=== PATIENT | female | born 1985 | race Caucasian/White ===

== ENCOUNTER 2017-12-10 19:24 | Observation (INO) ==
[2017-12-10] MEDS ORDERED: 0.9 % Sodium Chloride 1,000 ML IVC ONE ×2 (19:25→20:56)
[2017-12-10] MEDS ORDERED: Ondansetron 4 MG/2 ML VIAL IVP ONE (19:25)
--- NOTE | 2017-12-10 19:34 | Emergency Department Note ---
Disposition Clinical Impression: Nephrolithiasis, ROSALIE (acute kidney injury), Hypokalemia, Pyelonephritis Disposition: Admitted As Inpatient Condition: Undetermined Referrals: Willa Weeks CNP [Primary Care Provider] - Forms: ED Satisfaction Letter Time of Disposition: 21:45 Nausea/Vomiting/Diarrhea HPI - General Chief complaint: ED Nausea/Vomiting/Diarrhea Stated complaint: abdominal pain Time Seen by Provider: 12/10/17 19:25 Source: patient, EMS Mode of arrival: EMS Limitations: no limitations Nursing Notes Reviewed: Yes Vital Signs Reviewed: Yes - History of Present Illness HPI Narrative: 32-year-old female with history of kidney stones arrives to the emergency department with complaint of left flank pain and nausea and vomiting. The patient states this started roughly 5 days ago. The patient states this feels identical to previous kidney stones in the past. The patient states the only thing that is different is the fact that she is now having vomiting after she thinks she passed the kidney stone. She denies any pain at this time. She is resting comfortably in the room with the exception of feeling very nauseated and vomiting. The patient went to urgent care earlier today and was noted to have a heart rate in the 120s. The patient was started on IV fluids as well as sent to the emergency department for further evaluation. The patient is resting comfortably in the room at this time denying any request for analgesics but he is requesting antiemetics. Denies any other complaints. She denies any diarrhea, constipation, fevers, chills, chest pain, difficulty breathing. - Related Data Home Medications Medication Instructions Recorded Confirmed Buprenorphine HCl/Naloxone HCl 1.5 each SL DAILY 12/10/17 12/10/17 [Suboxone 8 mg-2 mg Sl Film] Citalopram [CeleXA] 20 mg PO DAILY 12/10/17 12/10/17 Hydrocortisone Acetate [Anucort-HC] 25 mg RC TID 12/10/17 12/10/17 Ibuprofen [Ibu] 800 mg PO TID 12/10/17 12/10/17 Lurasidone HCl [Latuda] 60 mg PO DAILY 12/10/17 12/10/17 Ondansetron HCl [Zofran] 4 mg PO QID 12/10/17 12/10/17 Sennosides [Senna] 8.6 mg PO TID 12/10/17 12/10/17 cloNIDine HCl [Clonidine HCl] 0.2 mg PO DAILY 12/10/17 12/10/17 diazePAM [Valium] 10 mg PO TID 12/10/17 12/10/17 traZODone [TraZODone] 50 mg PO HS 12/10/17 12/10/17 Allergies Allergy/AdvReac Type Severity Reaction Status Date / Time codeine Allergy Hives Verified 12/10/17 21:26 latex Allergy See Verified 12/10/17 21:26 Comments tramadol [From Ultram] Allergy See Verified 12/10/17 21:26 Comments All systems ED: reviewed and negative except as stated. Constitutional: Denies: fever, chills, weakness ENT ED: Denies: congestion Cardiovascular: Denies: chest pain Respiratory: Denies: dyspnea Gastrointestinal: Reports: nausea, vomiting. Denies: abdominal pain, diarrhea, constipation, hematemesis, melena, hematochezia Genitourinary: Reports: hematuria. Denies: urgency, dysuria Musculoskeletal: Denies: back pain Integumentary: Denies: rash Past Medical History - Past Medical History Attestation: Yes The following information was validated with the patient. 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 - Social History Smoking Status: Current every day smoker Smokeless Tobacco Status: No Alcohol use: Reports: none Drug use: Reports: none Physical Exam - General Limitations: no limitations General appearance: alert, in no apparent distress - Head Head exam: atraumatic, normocephalic, normal inspection - Eye Eye exam: Present: normal appearance, PERRL, EOMI - ENT ENT exam: normal exam, normal oropharynx, mucous membranes moist - Neck Neck exam: Present: normal inspection, full ROM, trachea midline - Chest Chest inspection: Present: normal inspection, symmetric chest wall rise - Respiratory Respiratory exam: Present: normal lung sounds bilaterally - Cardiovascular Cardiovascular exam: Present: normal rhythm, tachycardia, normal heart sounds - Abdominal Exam Abdominal exam: Present: soft, Non-Tender. Absent: tenderness, distention, guarding, rebound, rigidity - Extremities Exam Extremities exam: Present: normal inspection, full ROM. Absent: tenderness, pedal edema - Neurological Exam Neurological exam: Present: alert, oriented X3 - Skin Skin exam: Present: warm, dry, intact, normal color Course - Consultations Consultation #1: Spoke with Dr. Schmitz in urology who had no further recommendations other than antibiotic's and IV fluids. Time: 21:44 Vital Signs Temperature 99.9 F H 12/10/17 19:37 Pulse Rate 112 12/10/17 19:37 Respiratory Rate 18 12/10/17 19:37 Blood Pressure 121/89 12/10/17 19:37 O2 Sat by Pulse Oximetry 95 12/10/17 19:37 Temperature 99.9 F H 12/10/17 19:37 Pulse Rate 111 12/10/17 20:25 Respiratory Rate 16 12/10/17 20:25 Blood Pressure 115/100 12/10/17 20:25 O2 Sat by Pulse Oximetry 96 12/10/17 20:25 Oxygen Delivery Oxygen Delivery Room Air Nausea/Vomiting/Diarrhea - MDM Narrative Medical decision making narrative: Patient's workup in the emergency department demonstrates findings of pyelonephritis. There is no retained stone on CAT scan. The patient is a leukocytosis as well as noted to be hypokalemia with an acute kidney injury. The patient was receiving IV fluids upon arrival and another liter fluid was administered here in the ED with her nausea controlled with 8 mg of IV Zofran. The patient was started on IV antibodies, Rocephin. The patient's case was discussed with on-call urology who had no further recommendations other than antibiotics as well as IV fluids. The patient will be admitted to the hospital with a diagnosis of pyelonephritis, hypokalemia and acute kidney injury. Accepted by Dr. Palacios. - Lab Data Lab results reviewed: Yes I reviewed the patient's lab results. Result diagrams: 12/10/17 19:25 12/10/17 19:25 Lab Results 12/10/17 12/10/17 12/10/17 Range/Units 19:25 19:25 19:33 WBC 25.7 H (4.3-11.1) K/mcL RBC 5.63 H (3.82-4.97) M/mcL Hgb 16.9 H (11.5-15.4) g/dL Hct 47.6 H (35.3-44.9) % MCV 84.5 (83.0-100.0) fL MCH 30.0 (28.0-33.3) pg MCHC 35.5 (31.6-35.5) g/dL RDW 13.0 (11.5-14.5) % Plt Count 156 (140-400) K/mcL MPV 10.7 (9.4-12.4) fL Immature Gran % 0.9 (0-4) % Seg Neutrophils % 89.0 % Lymphocytes % 4.9 % Monocytes % 5.0 % Eosinophils % 0.0 % Basophils % 0.2 % Neutrophils # 22.9 H (1.6-8.9) K/mcL Lymphocytes # 1.3 (0.6-4.6) K/mcL Monocytes # 1.3 (0.0-1.3) K/mcL Eosinophils # 0.0 (0.0-0.6) K/mcL Basophils # 0.1 (0.0-0.2) K/mcL Reactive Lymphocytes Present A (Not Present) Platelet Estimate Normal (Normal) Sodium 133 L (136-145) mEq/L Potassium 2.8 L (3.5-5.1) mEq/L Chloride 100 (98-107) mEq/L Carbon Dioxide 20 L (23-29) mEq/L BUN 31 H (6-20) mg/dL Creatinine 1.30 H (0.60-1.20) mg/dL Est GFR ( Amer) 57 L (> 60) Est GFR (Non-Af Amer) 47 L (> 60) BUN/Creatinine Ratio 24 (6-26) Glucose 172 H (70-105) mg/dL Calculated Osmolality 287 (280-300) Calcium 8.9 (8.6-10.3) mg/dL Urine Color Dark Yellow (Yellow) Urine Clarity Turbid A (Clear) Urine pH 5.5 (5.0-8.0) pH Units Ur Specific [place] 1.019 (1.010-1.025) Urine Protein >=300 H (Neg-Trace) mg/dL Urine Glucose (UA) Normal (Normal) mg/dL Urine Ketones Negative (Negative) mg/dL Urine Blood Large H (Negative) Urine Nitrite Negative (Negative) Urine Bilirubin Negative (Negative) Urine Urobilinogen Normal (Normal) mg/dL Ur Leukocyte Esterase Large H (Negative) Urine Microscopic RBC 15-30 H (0-3) per hpf Urine Microscopic WBC TNTC H (0-3) per hpf Ur Squamous Epith Cells Many H (None-Few) per lpf Urine Bacteria Many H (None-Few) per hpf Hyaline Casts None Seen (None-Few) per lpf Ur Culture Indicated? NO. A (NO) - Radiology Data Radiology results reviewed: Yes I reviewed the patient's radiology results. Abdomen/Pelvis CT 12/10/17 20:29 IMPRESSION: 1. Moderate left hydronephrosis with perinephric stranding but no evident ureteral or urinary bladder calculus. Differential diagnosis includes pyelonephritis or recent passage of a calculus. 2. Punctate nonobstructing bilateral nephrolithiasis. 3. Mild diffuse hepatic steatosis. D/ / Ameya Foss / Ameya Foss Interpreting Provider: Ameya Foss - EKG Data EKG attestation: Yes I reviewed and interpreted this EKG. EKG results narrative: Heart rate 117 beats for minute. Sinus tachycardia. No ST elevation or ST depression noted. No acute changes with the exception of sinus tachycardia.
[2017-12-10 19:38] LABS: Bilirubin,Urine Negative (Negative); Blood,Urine Large (Negative); Clarity,Urine Turbid (Clear); Color,Urine Dark Yellow (Yellow); Glucose,Urine (UA) Normal (Normal); Ketones,Urine Negative (Negative); Leukocyte Esterase,Urine Large (Negative); Nitrite,Urine Negative (Negative); PH,Urine 5.5 pH Units (5.0-8.0); Protein,Urine >=300 mg/dL (Neg-Trace); Specific Gravity,Urine 1.019 (1.010-1.025); Urobilinogen,Urine Normal (Normal)
[2017-12-10 19:39] LABS: Bacteria,Urine Many per hpf (None-Few); Hyaline Casts,Urine None Seen per lpf (None-Few); RBC,Urine 15-30 per hpf (0-3); Squamous Epithelial Cell,Urine Many per lpf (None-Few); WBC,Urine TNTC per hpf (0-3)
--- NOTE | 2017-12-10 19:58 | Emergency Department Note ---
Disposition Clinical Impression: Nephrolithiasis Disposition: Still a Patient Forms: ED Satisfaction Letter General Adult HPI - General Chief complaint: ED Nausea/Vomiting/Diarrhea Stated complaint: abdominal pain Time Seen by Provider: 12/10/17 19:25 Source: patient, EMS Mode of arrival: EMS Limitations: no limitations - History of Present Illness Pain Scale: 4 - Related Data Home Medications Medication Instructions Recorded Confirmed Cetirizine HCl [Zyrtec] 10 mg PO QAM 05/23/15 01/08/16 Diazepam [Valium] 10 mg PO TID 05/23/15 01/08/16 Hydrochlorothiazide 25 mg PO DAILY 05/23/15 01/08/16 Lamotrigine [Lamictal] 300 mg PO BID 05/23/15 01/08/16 Lisinopril [Zestril] 40 mg PO DAILY 05/23/15 01/08/16 Rivaroxaban [Xarelto] 20 mg PO QAM 05/23/15 01/08/16 traZODone [TraZODone] 300 mg PO HS 05/23/15 01/08/16 Previous Rx's Medication Instructions Recorded Meclizine [Antivert] 25 mg PO ONCE PRN #20 tablet 05/23/15 Allergies Allergy/AdvReac Type Severity Reaction Status Date / Time codeine Allergy Hives Verified 01/08/16 21:21 latex Allergy See Verified 01/08/16 21:21 Comments tramadol [From Ultram] Allergy See Verified 01/08/16 21:21 Comments Constitutional: Denies: fever, chills, weakness ENT ED: Denies: congestion Cardiovascular: Denies: chest pain Respiratory: Denies: dyspnea Gastrointestinal: Reports: nausea, vomiting. Denies: abdominal pain, diarrhea, constipation, hematemesis, melena, hematochezia Genitourinary: Reports: hematuria. 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 I agree with the documented findings, disposition and treatment plan as described except to the extent set forth below. Patient seen with emergency medicine resident Dr. Amado Torres, Please see a copy of his note for details of the H&P, ED evaluation, management and disposition. I have independently evaluated the patient and confirmed appropriate portions of the history and physical exam. Briefly: 32-year-old female by EMS for nausea and vomiting history kidney stone presents with flank pain. Was seen in urgent care earlier her pulses in the 120s there were concerned and sent her in for further evaluation. Patient denies fevers chills shortness breath or chest pain. Abdomen is surgically benign she is tachycardic and appears dehydrated. Patient will be getting IV normal saline bolus screening labs and imaging. We offered the patient IV analgesics she declined at this time. Disposition pending Time: 19:56 Vital Signs Temperature 99.9 F H 12/10/17 19:37 Pulse Rate 112 12/10/17 19:37 Respiratory Rate 18 12/10/17 19:37 Blood Pressure 121/89 12/10/17 19:37 O2 Sat by Pulse Oximetry 95 12/10/17 19:37 Temperature 99.9 F H 12/10/17 19:37 Pulse Rate 112 12/10/17 19:37 Respiratory Rate 18 12/10/17 19:37 Blood Pressure 121/89 12/10/17 19:37 O2 Sat by Pulse Oximetry 95 12/10/17 19:37 Oxygen Delivery Oxygen Delivery Room Air
[2017-12-10 20:09] LABS: Basophils # 0.1 K/mcL (0.0-0.2); Basophils % 0.2 %; Hematocrit 47.6 % (35.3-44.9); Hemoglobin 16.9 g/dL (11.5-15.4); Immature Granulocytes % 0.9 % (0-4); Lymphocytes # 1.3 K/mcL (0.6-4.6); Lymphocytes % 4.9 %; Mean Corpuscular HGB Conc 35.5 g/dL (31.6-35.5); Mean Corpuscular Volume 84.5 fL (83.0-100.0); Mean Platelet Volume 10.7 fL (9.4-12.4); Monocytes # 1.3 K/mcL (0.0-1.3); Neutrophils # 22.9 K/mcL (1.6-8.9); Platelet Count 156 K/mcL (140-400); Red Blood Count 5.63 M/mcL (3.82-4.97)
[2017-12-10 20:27] LABS: Calcium 8.9 mg/dL (8.6-10.3); Potassium 2.8 mEq/L (3.5-5.1)
[2017-12-10] MEDS ORDERED: cefTRIAXone 1,000 MG in Water for inj. (sterile) 20 ML 10 ML IVP ONE (20:30)
[2017-12-10 20:44] LABS: Platelet Estimate Normal (Normal); Reactive Lymphocytes Present (Not Present)
--- NOTE | 2017-12-10 23:01 | Internal Med History&Physical ---
Date of Encounter: 12/11/17 Time of Encounter: 10:01 Internal Medicine - H&P: HPI History of present illness: Ms. Martinez is a 32 year old female with history of kidney stones arrives to the emergency department with complaint of left flank pain and nausea and vomiting. The patient went to urgent care earlier today and was noted to have a heart rate in the 120s. The patient was started on IV fluids as well as sent to the emergency department for further evaluation. CAT scan of the abdomen and pelvis revealed Moderate left hydronephrosis with perinephric stranding but no evident ureteral or urinary bladder calculus, Punctate nonobstructing bilateral nephrolithiasis., Mild diffuse hepatic steatosis. Past Med Surg Social Fam HX - Past Medical History Medical history: asthma, hypertension, migraine, seizures, other Additional medical history: factor 5. Psychiatric history: anxiety, bipolar, depression - Past Surgical History Surgical History: hip replacement Additional surgical history: right knee tumor removed. right hip sx x 2. bladder mesh implant. kidney stones x 2. left oopherectomy. vaginal septum sx. D&C - Social History Smoking Status: Current every day smoker Smokeless Tobacco Status: No Alcohol use: none Drug use: none Internal Medicine - H&P: Meds Buprenorphine HCl/Naloxone HCl [Suboxone 8 mg-2 mg Sl Film] 1.5 each SL DAILY [History] Citalopram [CeleXA] 20 mg PO DAILY 12/10/17 [History] Hydrocortisone Acetate [Anucort-HC] 25 mg RC TID 12/10/17 [History] Ibuprofen [Ibu] 800 mg PO TID 12/10/17 [History] Lurasidone HCl [Latuda] 60 mg PO DAILY 12/10/17 [History] Ondansetron HCl [Zofran] 4 mg PO QID 12/10/17 [History] Sennosides [Senna] 8.6 mg PO TID 12/10/17 [History] cloNIDine HCl [Clonidine HCl] 0.2 mg PO DAILY 12/10/17 [History] diazePAM [Valium] 10 mg PO TID 12/10/17 [History] traZODone [TraZODone] 50 mg PO HS 12/10/17 [History] 3 Allergy/AdvReac Type Severity Reaction Status Date / Time codeine Allergy Hives Verified 12/10/17 21:26 latex Allergy See Verified 12/10/17 21:26 Comments tramadol [From Ultram] Allergy See Verified 12/10/17 21:26 Comments All Systems PM: A 10-system review of systems was performed and is negative for pertinent findings except as documented above in the HPI. - Constitutional Constitutional: no chills, no fever(s), no night sweats - Cardiovascular Cardiovascular ROS IM: no chest pain, no diaphoresis, no dyspnea, no lightheadedness, no palpitations, no syncope - Respiratory Respiratory: no cough, no dyspnea, no wheezing, no excessive phlegm production - Gastrointestinal Gastrointestinal: nausea, vomiting, no abdominal pain, no diarrhea, no hematemesis, no hematochezia, no melena - Genitourinary Genitourinary: flank pain, no change in urinary stream, no dysuria, no hematuria - Neurological Neurological ROS: no confusion, no convulsions, no focal weakness, no numbness, no tingling, no tremor(s) - Constitutional Vitals: Temp Pulse Resp BP Pulse Ox 99.9 F H 114 14 148/84 98 12/10/17 22:48 12/10/17 22:48 12/10/17 22:48 12/10/17 22:48 12/10/17 22:48 General appearance: Present: A&O X 3 - Head Head exam: Present: atraumatic, normocephalic - Neck Neck exam general surgery: Present: supple, trachea midline. Absent: lymphadenopathy - Respiratory Respiratory exam: Present: CTAB. Absent: accessory muscle use, rales, rhonchi, wheezes - Cardiovascular Cardiovascular exam: Present: RRR, +S1, +S2. Absent: diastolic murmur, gallop, rubs, systolic murmur - GI/Abdominal GI/Abdominal exam: Present: normal bowel sounds, soft, no peritoneal signs. Absent: distended, tenderness - Extremities Exam Extremities exam: Present: warm, radial pulses palpable and symmetrical. Absent : calf tenderness, cyanotic, pedal edema - Neurological Exam Neurological exam: Present: CN II-XII intact, oriented X3, no focal deficits. Absent: pronater drift, facial droop, speech deficit Internal Med - H&P Results - Labs CBC & Chem 7: 12/10/17 19:25 12/10/17 19:25 - Assessment and plan (1) Pyelonephritis Current Visit: Yes Status: Acute Assessment and plan: CAT scan of the abdomen and pelvis revealed Moderate left hydronephrosis with perinephric stranding but no evident ureteral or urinary bladder calculus, Punctate nonobstructing bilateral nephrolithiasis., Mild diffuse hepatic steatosis, start the patient on empiric antibiotics, start IV hydration with isotonic fluid, start antiemetic for nausea and vomiting. Urology was consulted for further evaluation and management , (2) Hypokalemia Current Visit: Yes Status: Acute Assessment and plan: Most likely secondary to vomiting we will replace and continue to monitor potassium level (3) ROSALIE (acute kidney injury) Current Visit: Yes Status: Acute Assessment and plan: Most likely secondary to prerenal etiology due to volume depletion in the setting of persistent nausea and vomiting, we will start patient on IV hydration with isotonic fluid and continue to monitor renal function, strict I&O 's, renal dosing of medication per currently GFR (4) Nephrolithiasis Current Visit: Yes Status: Acute Assessment and plan: CAT scan of the abdomen and pelvis revealed Moderate left hydronephrosis with perinephric stranding but no evident ureteral or urinary bladder calculus, Punctate nonobstructing bilateral nephrolithiasis., Neurology was consulted (5) DVT prophylaxis Current Visit: Yes Status: Acute - Time Spent With Patient Total time spent is greater than 50% in coordination of care (as documented) at patient's floor/unit and/or counseling patient:
[2017-12-11] MEDS ORDERED: Acetaminophen 325 MG TABLET PO PRN (02:03)
[2017-12-11] MEDS ORDERED: Naloxone 0.4 MG/ML INJ IVP PRN (02:03)
[2017-12-11] MEDS ORDERED: *HR* HYDROcodone/Acet 5/325 mg TABLET PO PRN (02:03)
[2017-12-11] MEDS ORDERED: *HR* Dextrose 50 % in Water (Syg) 50 ML SYRINGE IVP PRN (02:06)
[2017-12-11] MEDS ORDERED: Dextrose Gel 15 GM/37.5 ML TUBE PO PRN ×2 (02:06)
[2017-12-11] MEDS ORDERED: D5% in Water 1,000 ML IVC PRN (02:06)
[2017-12-11] MEDS: 0.9 % Sodium Chloride 1,000 ML IVC SCH ×2 (03:03→11:55)
[2017-12-11 06:20] LABS: Basophils % 0.2 %; Hematocrit 39.4 % (35.3-44.9); Immature Granulocytes % 1.2 % (0-4); Lymphocytes # 1.5 K/mcL (0.6-4.6); Lymphocytes % 7.7 %; Mean Corpuscular Hemoglobin 29.2 pg (28.0-33.3); Mean Corpuscular Volume 83.5 fL (83.0-100.0); Mean Platelet Volume 11.2 fL (9.4-12.4); Monocytes # 1.4 K/mcL (0.0-1.3); Monocytes % 7.2 %; Neutrophils # 15.9 K/mcL (1.6-8.9); Platelet Count 146 K/mcL (140-400); Red Blood Count 4.72 M/mcL (3.82-4.97); Red Cell Distribution Width 13.3 % (11.5-14.5); Segmented Neutrophils % 83.7 %
[2017-12-11 06:23] LABS: Hemoglobin 13.8 g/dL (11.5-15.4)
[2017-12-11 06:35] LABS: Alanine Aminotransferase 12 Units/L (7-52); Albumin 3.1 g/dL (3.5-5.7); Albumin/Globulin Ratio 1.1 (1.1-2.2); Alkaline Phosphatase 46 Units/L (34-104); Aspartate Amino Transferase 16 Units/L (13-39); BUN/Creatinine Ratio 22 (6-26); Bilirubin,Total 1.3 mg/dL (0.3-1.0); Blood Urea Nitrogen 24 mg/dL (6-20); Calcium 7.7 mg/dL (8.6-10.3); Carbon Dioxide 21 mEq/L (23-29); Chloride 107 mEq/L (98-107); Chol/HDL Ratio 6.5 (0-4.9); Cholesterol 84 mg/dL (< 200); Globulin 2.8 g/dL (2.4-3.5); Glucose 137 mg/dL (70-105); HDL Cholesterol 13 mg/dL (40-59); LDL Cholesterol,Calculated 38 mg/dL (0-99); Magnesium 1.2 mg/dL (1.6-2.6); Osmolality,Calculated 288 (280-300); Phosphorous 1.8 mg/dL (2.7-4.5); Potassium 2.9 mEq/L (3.5-5.1); Sodium 136 mEq/L (136-145); Total Protein 5.9 g/dL (6.4-8.9); Triglycerides 167 mg/dL (< 150); eGFR For African Americans > 60 (> 60); eGFR For Non-African Americans 57 (> 60)
[2017-12-11 06:37] LABS: INR 1.6; Prothrombin Time 17.8 Seconds (9.4-12.1)
[2017-12-11 06:40] LABS: Activated Partial Thrombo Time 32.9 Seconds (26.0-36.0)
[2017-12-11] MEDS ORDERED: Insulin LISPRO 300 UNITS/3 ML VIAL SQ SCH ×2 (07:30→21:00)
[2017-12-11] MEDS ORDERED: Potassium Chloride Elixir 20 MEQ/15 ML UDC PO ONE (08:04)
[2017-12-11] MEDS ORDERED: Potassium Phosphate 44 MEQ in 0.9 % Sodium Chloride 250 ML IVPB ONE (08:04)
[2017-12-11] MEDS: Ondansetron ODT 4 MG TAB.RAPDIS PO SCH ×2 (08:24→11:57)
[2017-12-11] MEDS ORDERED: cefTRIAXone 1,000 MG in Water for inj. (sterile) 20 ML 10 ML IVP SCH (09:00)
[2017-12-11] MEDS ORDERED: Hydrocortisone Acetate 25 MG RECTAL SUPPOSITORY RC SCH (09:00)
[2017-12-11] MEDS ORDERED: Lurasidone 20 MG TABLET PO SCH (09:00)
[2017-12-11] MEDS ORDERED: cloNIDine HCl 0.1 MG TABLET PO SCH (09:00)
[2017-12-11] MEDS ORDERED: diazePAM 10 MG TABLET PO SCH (09:00)
[2017-12-11] MEDS ORDERED: Sennosides 8.6 MG TABLET PO SCH (09:00)
--- NOTE | 2017-12-11 11:29 | Urology - Consult Note ---
Date of Encounter: 12/11/17 Time of Encounter: 11:27 - Assessment and Plan (1) Hydronephrosis Current Visit: Yes Status: Acute Assessment and plan: No obvious obstructing ureteral stone was seen. Likely secondary to inflammatory changes from pyelonephritis. We will continue to observe. No urgent need for ureteral stenting at this time Qualifiers: Hydronephrosis type: other Qualified Code(s): N13.39 - Other hydronephrosis (2) ROSALIE (acute kidney injury) Current Visit: Yes Status: Acute Assessment and plan: Serum creatinine improving overnight with IV fluids. Most likely secondary to dehydration. (3) Nephrolithiasis Current Visit: Yes Status: Acute Assessment and plan: Very tiny left nonobstructing stone not causing significant issues at this time. (4) Pyelonephritis Current Visit: Yes Status: Acute Assessment and plan: Continue with broad-spectrum antibiotics at this time. We will continue to observe along closely with primary team. Awaiting urine culture Urology CN:MICHAEL Consult date: 12/11/17 Reason for consult Urology: Hydronephrosis Requesting physician: Candice Ashley History of present illness: April is a 32 -year-old female with a history of recent admission to the hospital secondary to left-sided hydronephrosis and pyelonephritis. Patient states that over the past few days she has had off-and-on left-sided flank pain as well as some nausea and vomiting. Positive fevers at home. Patient came to the emergency department last night where she was found to have moderate left sided hydronephrosis as well as inflammatory stranding around her left kidney with a fever and leukocytosis. This was consistent with pyelonephritis. Patient did not have any obvious obstructing stone even though she has a very small left renal stone. Past Med Surg Social Fam HX - Past Medical History Medical history: asthma, hypertension, migraine, seizures, other Additional medical history: factor 5. Psychiatric history: anxiety, bipolar, depression - Past Surgical History Surgical History: hip replacement Additional surgical history: right knee tumor removed. right hip sx x 2. bladder mesh implant. kidney stones x 2. left oopherectomy. vaginal septum sx. D&C - Social History Smoking Status: Current every day smoker Packs per day: 1/2 Smokeless Tobacco Status: No Alcohol use: none Drug use: none - Additional Family History Additional family history: Father: 36 yrs, Natural casuses, diagnosed with No History. Mother: 47 yrs, depression, heart condition, hypertension, diagnosed with Hypertension, Mental Illness. 3 brother(s) , 1 sister(s) . 1 son(s) . Denies family hx of colon cancer or polyps. Uncle prone to kidney stones. Medications and Allergies Buprenorphine HCl/Naloxone HCl [Suboxone 8 mg-2 mg Sl Film] 1.5 each SL DAILY [History] Citalopram [CeleXA] 20 mg PO DAILY 12/10/17 [History] Hydrocortisone Acetate [Anucort-HC] 25 mg RC TID 12/10/17 [History] Ibuprofen [Ibu] 800 mg PO TID 12/10/17 [History] Lurasidone HCl [Latuda] 60 mg PO DAILY 12/10/17 [History] Ondansetron HCl [Zofran] 4 mg PO QID 12/10/17 [History] Sennosides [Senna] 8.6 mg PO TID 12/10/17 [History] cloNIDine HCl [Clonidine HCl] 0.2 mg PO DAILY 12/10/17 [History] diazePAM [Valium] 10 mg PO TID 12/10/17 [History] traZODone [TraZODone] 50 mg PO HS 12/10/17 [History] 3 Allergy/AdvReac Type Severity Reaction Status Date / Time codeine Allergy Hives Verified 12/10/17 21:26 latex Allergy See Verified 12/10/17 21:26 Comments tramadol [From Ultram] Allergy See Verified 12/10/17 21:26 Comments Review of Systems - Constitutional chills, fever(s) - EENT Nose, mouth and throat: no dizziness, no sore throat - Cardiovascular no chest pain, no dyspnea - Respiratory no cough, no dyspnea - Gastrointestinal nausea, vomiting, no abdominal pain - Genitourinary Genitourinary: dysuria, flank pain - Musculoskeletal back pain, no muscle weakness - Integumentary no erythema, no lesions, no swelling - Neurological no confusion, no sensory deficit, no weakness - Psychiatric no anxiety, no confusion - Hematologic/Lymphatic no easy bleeding, no lymphadenopathy - Allergic/Immunologic no throat swelling, no wheezing Exam Initial Vital Signs Temp Pulse Resp BP Pulse Ox 99.9 F H 112 18 121/89 95 12/10/17 19:37 12/10/17 19:37 12/10/17 19:37 12/10/17 19:37 12/10/17 19:37 General/Neuological: alert and oriented x 3 Eyes: normal pupils, non-icteric Neck: no lymphadenopathy noted, supple to touch Cardiovascular: RRR, no murmurs Respiratory: normal respiratory effort, clear bilaterally ABD: soft, nontender, no masses palpated, good bowel sounds Back: no pain on percussion bilaterally Skin: no rashes noted Musculoskeletal: normal gait, FROMx4 Urology Results - Labs 12/11/17 05:37 12/11/17 05:37 Abnormal lab results WBC 19.0 K/mcL (4.3-11.1) H 12/11/17 05:37 Neutrophils # 15.9 K/mcL (1.6-8.9) H 12/11/17 05:37 Monocytes # 1.4 K/mcL (0.0-1.3) H 12/11/17 05:37 Reactive Lymphocytes Present (Not Present) A 12/10/17 19:25 PT 17.8 Seconds (9.4-12.1) H 12/11/17 05:37 Potassium 2.9 mEq/L (3.5-5.1) L 12/11/17 05:37 Carbon Dioxide 21 mEq/L (23-29) L 12/11/17 05:37 BUN 24 mg/dL (6-20) H 12/11/17 05:37 Est GFR (Non-Af Amer) 57 (> 60) L 12/11/17 05:37 Glucose 137 mg/dL (70-105) H 12/11/17 05:37 POC Glucose 130 mg/dL (70-99) H 12/11/17 07:01 Calcium 7.7 mg/dL (8.6-10.3) L 12/11/17 05:37 Phosphorus 1.8 mg/dL (2.7-4.5) L 12/11/17 05:37 Magnesium 1.2 mg/dL (1.6-2.6) L 12/11/17 05:37 Total Bilirubin 1.3 mg/dL (0.3-1.0) H 12/11/17 05:37 Serum Total Protein 5.9 g/dL (6.4-8.9) L 12/11/17 05:37 Albumin 3.1 g/dL (3.5-5.7) L 12/11/17 05:37 Triglycerides 167 mg/dL (< 150) H 12/11/17 05:37 VLDL Cholesterol, Calc 33 mg/dL (< 31) H 12/11/17 05:37 HDL Cholesterol 13 mg/dL (40-59) L 12/11/17 05:37 Cholesterol/HDL Ratio 6.5 (0-4.9) H 12/11/17 05:37 Urine Clarity Turbid (Clear) A 12/10/17 19:33 Urine Protein >=300 mg/dL (Neg-Trace) H 12/10/17 19:33 Urine Blood Large (Negative) H 12/10/17 19:33 Ur Leukocyte Esterase Large (Negative) H 12/10/17 19:33 Urine Microscopic RBC 15-30 per hpf (0-3) H 12/10/17 19:33 Urine Microscopic WBC TNTC per hpf (0-3) H 12/10/17 19:33 Ur Squamous Epith Cells Many per lpf (None-Few) H 12/10/17 19:33 Urine Bacteria Many per hpf (None-Few) H 12/10/17 19:33 Ur Culture Indicated? NO. (NO) A 12/10/17 19:33 Diabetes panel 12/11/17 Range/Units 05:37 Sodium 136 (136-145) mEq/L Potassium 2.9 L (3.5-5.1) mEq/L Chloride 107 (98-107) mEq/L Carbon Dioxide 21 L (23-29) mEq/L BUN 24 H (6-20) mg/dL Creatinine 1.10 (0.60-1.20) mg/dL Glucose 137 H (70-105) mg/dL Calcium 7.7 L (8.6-10.3) mg/dL AST 16 (13-39) Units/L ALT 12 (7-52) Units/L Alkaline Phosphatase 46 (34-104) Units/L Albumin 3.1 L (3.5-5.7) g/dL Triglycerides 167 H (< 150) mg/dL HDL Cholesterol 13 L (40-59) mg/dL Calcium panel 12/11/17 Range/Units 05:37 Calcium 7.7 L (8.6-10.3) mg/dL Phosphorus 1.8 L (2.7-4.5) mg/dL Albumin 3.1 L (3.5-5.7) g/dL Pituitary panel 12/11/17 Range/Units 05:37 Sodium 136 (136-145) mEq/L Potassium 2.9 L (3.5-5.1) mEq/L Chloride 107 (98-107) mEq/L Carbon Dioxide 21 L (23-29) mEq/L BUN 24 H (6-20) mg/dL Creatinine 1.10 (0.60-1.20) mg/dL Glucose 137 H (70-105) mg/dL Calcium 7.7 L (8.6-10.3) mg/dL Adrenal panel 12/11/17 Range/Units 05:37 Sodium 136 (136-145) mEq/L Potassium 2.9 L (3.5-5.1) mEq/L Chloride 107 (98-107) mEq/L Carbon Dioxide 21 L (23-29) mEq/L BUN 24 H (6-20) mg/dL Creatinine 1.10 (0.60-1.20) mg/dL Glucose 137 H (70-105) mg/dL Calcium 7.7 L (8.6-10.3) mg/dL Total Bilirubin 1.3 H (0.3-1.0) mg/dL AST 16 (13-39) Units/L ALT 12 (7-52) Units/L Alkaline Phosphatase 46 (34-104) Units/L Albumin 3.1 L (3.5-5.7) g/dL All other labs normal. - Imaging CT scan - abdomen: image reviewed CT scan - pelvis: image reviewed Consult Discharge Plan - Plan Referrals: Willa Weeks, MIRANDA [Primary Care Provider] -
[2017-12-11 15:30] VITALS: BP 137/68
--- NOTE | 2017-12-11 16:28 | Internal Med Progress Note ---
Date of Encounter: 12/11/17 Time of Encounter: 12:00 - Assessment and plan (1) Pyelonephritis Current Visit: Yes Status: Acute Assessment and plan: CT abdomen/pelvis shows left pyelonephritis. IV hydration. Continue IV Rocephin. No blood cultures available. Follow-up urine culture. Improving vital signs and leukocytosis. (2) Sepsis Current Visit: Yes Status: Acute Assessment and plan: Patient presented with leukocytosis, fever and tachycardia due to UTI/ pyelonephritis. Continue IV antibiotics and follow up cultures. Qualifiers: Sepsis type: sepsis due to unspecified organism Qualified Code(s): A41.9 - Sepsis, unspecified organism (3) Nephrolithiasis Current Visit: Yes Status: Acute Assessment and plan: CT abdomen/pelvis shows moderate left hydronephrosis with perinephric stranding , punctate nonobstructing bilateral renal stones. Urology consult appreciated, no acute intervention for now as renal function noted to be improving, no obstructing stones. (4) ROSALIE (acute kidney injury) Current Visit: Yes Status: Acute Assessment and plan: Secondary to UTI and renal stones. Serum creatinine improving, 1.1 today. Continue IV hydration and monitor urine output. (5) Hypokalemia Current Visit: Yes Status: Acute Assessment and plan: Improving. Supplement with oral potassium chloride. (6) DVT prophylaxis Current Visit: Yes Status: Acute (7) Bipolar disorder Current Visit: Yes Status: Chronic Assessment and plan: Resume home medications. Qualifiers: Active/Remission status: remission status unspecified Qualified Code(s): F31.9 - Bipolar disorder, unspecified (8) Opiate dependence Current Visit: Yes Status: Chronic Assessment and plan: Noted to be on Suboxone treatment at home, patient's to bring in home medications. Qualifiers: Substance use status: in remission Qualified Code(s): F11.21 - Opioid dependence, in remission (9) Hypomagnesemia Current Visit: Yes Status: Acute Assessment and plan: Likely related to GI losses. Supplement with IV magnesium sulfate and oral Neutra-Phos. (10) Hypophosphatemia Current Visit: Yes Status: Acute Assessment and plan: Supplement with IV potassium phosphate and oral Neutra-Phos. - Time Spent With Patient Total time spent is greater than 50% in coordination of care (as documented) at patient's floor/unit and/or counseling patient: - Subjective Interval history: Feels better; improved nausea and vomiting; has mild left flank pain, not requiring IV pain meds; no fever/chills, diarrhea, chest pain, dyspnea; - Constitutional Vitals: Temp Pulse Resp BP Pulse Ox 97.9 F 92 16 137/68 94 12/11/17 15:29 12/11/17 15:29 12/11/17 15:29 12/11/17 15:29 12/11/17 15:29 General appearance: Present: A&O X 3, answers questions appropriately - Respiratory Respiratory exam: Present: CTAB. Absent: accessory muscle use, rales, rhonchi, wheezes - Cardiovascular Cardiovascular exam: Present: RRR, +S1, +S2. Absent: diastolic murmur, gallop, rubs, systolic murmur - GI/Abdominal GI/Abdominal exam: Present: normal bowel sounds, soft, no peritoneal signs. Absent: distended, tenderness - Extremities Exam Extremities exam: Present: full ROM, warm, radial pulses palpable and symmetrical. Absent: calf tenderness, cyanotic, pedal edema - Back Exam Back exam: Present: CVA tenderness (L) - Neurological Exam Neurological exam: Present: CN II-XII intact, oriented X3, no focal deficits. Absent: pronater drift, facial droop, speech deficit Internal Medicine: Result - Labs CBC & Chem 7: 12/11/17 05:37 12/11/17 05:37 Labs: Short CBC 12/11/17 Range/Units 05:37 WBC 19.0 H (4.3-11.1) K/mcL Hgb 13.8 D (11.5-15.4) g/dL Hct 39.4 (35.3-44.9) % Plt Count 146 (140-400) K/mcL Neutrophils # 15.9 H (1.6-8.9) K/mcL BMP 12/11/17 05:37 Sodium 136 Potassium 2.9 L Chloride 107 Carbon Dioxide 21 L BUN 24 H Creatinine 1.10 Glucose 137 H Calcium 7.7 L Liver Function 12/11/17 Range/Units 05:37 Total Bilirubin 1.3 H (0.3-1.0) mg/dL AST 16 (13-39) Units/L ALT 12 (7-52) Units/L Alkaline Phosphatase 46 (34-104) Units/L Albumin 3.1 L (3.5-5.7) g/dL - ABG Interpretation ABG results: PT/INR, D-dimer PT 17.8 Seconds (9.4-12.1) H 12/11/17 05:37 Consult Discharge Plan - Plan Referrals: Willa Weeks, MIRANDA [Primary Care Provider] -
[2017-12-11] MEDS ORDERED: traZODone 50 MG TABLET PO SCH (21:00)
--- NOTE | 2017-12-12 11:16 | Electrocardiograph Report ---
[address] [address] Test Date: 2017-12-10 Pat Name: April Martinez Department: 104 Room: 3A56 Gender: F Spiritual Minister: NELLIE : 1985 Requested By: Christina Wagner Order Number: [id number] Reading MD: Ariel Dye Measurements Intervals Zahl Rate: 117 P: 17 OR: 118 QRS: 59 QRSD: 87 T: 19 QT: 328 QTc: 397 Interpretive Statements SINUS TACHYCARDIA POSSIBLE LEFT ATRIAL ENLARGEMENT ABNORMAL RHYTHM ECG Electronically Signed On 12-12-2017 11:14:20 EDT by Ariel Dye
--- NOTE | 2017-12-12 16:53 | Discharge Summary ---
Orders not resulted at time of discharge: Pending orders 12/11/17 08:03 Culture,Urine [RM] Stat Date of Encounter: 12/11/17 Time of Encounter: 18:30 - Discharge Diagnosis (1) Pyelonephritis Priority: Primary Status: Acute (2) Sepsis Priority: Primary Status: Acute Qualifiers: Sepsis type: sepsis due to unspecified organism Qualified Code(s): A41.9 - Sepsis, unspecified organism (3) Nephrolithiasis Priority: Primary Status: Chronic (4) ROSALIE (acute kidney injury) Priority: Primary Status: Acute (5) Hypokalemia Priority: Primary Status: Acute (6) Bipolar disorder Priority: Secondary Status: Chronic Qualifiers: Active/Remission status: remission status unspecified Qualified Code(s): F31.9 - Bipolar disorder, unspecified (7) Opiate dependence Priority: Secondary Status: Chronic Qualifiers: Substance use status: in remission Qualified Code(s): F11.21 - Opioid dependence, in remission (8) Hypomagnesemia Priority: Secondary Status: Acute (9) Hypophosphatemia Priority: Secondary Status: Acute Hospital course: Ms. Martinez is a 32 year old female who was admitted with sepsis secondary to UTI/left-sided pyelonephritis. She was started on IV hydration and empiric IV antibiotics, blood and urine cultures are pending. She is also noted to have multiple electrolyte abnormalities like low potassium, magnesium and phosphorus, which had been supplemented. Patient has been explained all this and the need to stay in the hospital for continued IV hydration and IV antibiotics and urine culture results. She understands that she is at risk for worsening sepsis and shock and other complications including , if she leaves AGAINST MEDICAL ADVICE. She was noted to be alert and oriented, decided to sign out AGAINST MEDICAL ADVICE. Discharge discussed with: patient, nurse - Time Spent with Patient Total time spent providing and/or coordinating discharge services: Less than 30 minutes (20 min) - Discharge Medications Home Medications: Buprenorphine HCl/Naloxone HCl [Suboxone 8 mg-2 mg Sl Film] 1.5 each SL DAILY [History] Citalopram [CeleXA] 20 mg PO DAILY 12/10/17 [History] Hydrocortisone Acetate [Anucort-HC] 25 mg RC TID 12/10/17 [History] Ibuprofen [Ibu] 800 mg PO TID 12/10/17 [History] Lurasidone HCl [Latuda] 60 mg PO DAILY 12/10/17 [History] Ondansetron HCl [Zofran] 4 mg PO QID 12/10/17 [History] Sennosides [Senna] 8.6 mg PO TID 12/10/17 [History] cloNIDine HCl [Clonidine HCl] 0.2 mg PO DAILY 12/10/17 [History] diazePAM [Valium] 10 mg PO TID 12/10/17 [History] traZODone [TraZODone] 50 mg PO HS 12/10/17 [History] Allergies/Adverse Reactions: 3 Allergy/AdvReac Type Severity Reaction Status Date / Time codeine Allergy Hives Verified 12/10/17 21:26 latex Allergy See Verified 12/10/17 21:26 Comments tramadol [From Ultram] Allergy See Verified 12/10/17 21:26 Comments Date of admission: 12/10/17 22:10 Primary care physician: Willa Weeks Anticipated date of discharge: 12/11/17 - Constitutional Vitals: Temp Pulse Resp BP Pulse Ox 97.9 F 92 16 137/68 94 12/11/17 15:29 12/11/17 15:29 12/11/17 15:29 12/11/17 15:29 12/11/17 15:29 General appearance: Present: A&O X 3, answers questions appropriately - Patient Status Disposition: Left Against Medical Advice Condition: Fair Overall status at discharge: patient is not back to baseline - Discharge Instructions Follow Up With: Willa Weeks, MIRANDA [Primary Care Provider] -
== END 2017-12-11 18:34 | disposition left against medical advice (07) ==
LOC: 3ANU 19:24 → EMEROO 19:24 → SUATTDRO 22:10 → 3ANU 22:53
PROVIDERS: ADMIT Family Medicine; ATTEND Internal Medicine